=== PATIENT | male | born 1975 | race Caucasian/White ===

== ENCOUNTER 2021-06-02 19:57 | Emergency (ER) | payer MEDICAID ==
[~2021-06-02] VITALS: Ht 180.3 cm; Wt 114.0 kg
[2021-06-02] MEDS ORDERED: HYDROcodone/acetaminophen 10/325mg tab PO ONE (22:50)
[2021-06-02] MEDS ORDERED: HYDR-3965 PO (23:09)
[2021-06-03 00:16] VITALS: BP 130/86
== END 2021-06-03 00:18 | disposition home or self-care (01) ==
LOC: ER 19:59
DX: S00.03XA Contusion of scalp, initial encounter (principal); S00.411A Abrasion of right ear, initial encounter; S09.8XXA Other specified injuries of head, initial encounter; R07.81 Pleurodynia; Z88.0 Allergy status to penicillin; Z79.899 Other long term (current) drug therapy; W11.XXXA Fall on and from ladder, initial encounter; Y93.H2 Activity, gardening and landscaping; Y92.89 Other specified places as the place of occurrence of the external cause; Y99.8 Other external cause status
CPT/HCPCS: 71046; 99284